=== PATIENT | female | born 1955 | race Hispanic/Latino ===

== ENCOUNTER 2023-05-21 04:59 | Observation (INO) | payer OTHER ==
[2023-05-16 10:29] LABS: INR 0.95 (0.85-1.15); PROTHROMBIN TIME 11.1 SEC (9.6-11.6)
[2023-05-16 10:30] LABS: PARTIAL THROMBOPLASTIN TIME 28.8 SEC (26.3-35.5)
[2023-05-16 10:33] VITALS: BP 108/60; PULSE 64; RESP 18
[2023-05-21] VITALS (27 sets, daily range): BP systolic 91–123; BP diastolic 55–75; PULSE 52–92; RESP 13–19; O2SAT 98
[~2023-05-21] VITALS: Ht 160 cm; Wt 75.7 kg
[~2023-05-21 04:59] MED LIST: ACET-2521 PO; ALEN70TA80 PO; ATOR20TA65 PO; BACL10TA PO; GABA300C PO; LISI1TAB51 PO; METO-408 PO; RIVA15TA PO; SUCR1ORA15 PO
[2023-05-21] MEDS: LACTATED RINGERS 1000ML 1,000 ML IV ONE (06:18)
[2023-05-21] MEDS: CEFAZOLIN SODIUM 2 GM VIAL ONE (06:18)
[2023-05-21] MEDS ORDERED: 0.9%NACL 48.45 ML, ROPIVACAINE 0.5% 49.25ML, EPINEPH 0.5MG KETOROLAC 30MG,CLONIDINE 80MCG IV PRN (07:00)
[2023-05-21] MEDS ORDERED: CEFAZOLIN SODIUM 1 GM VIAL ONE (09:02)
[2023-05-21] MEDS ORDERED: GENTAMICIN SULFATE 80 MG/2 ML VIAL ONE (09:02)
[2023-05-21] MEDS ORDERED: SUCCINYLCHOLINE CHLORIDE 20 MG/ML 10 ML VIAL ONE (10:02)
[2023-05-21] MEDS ORDERED: MIDAZOLAM HCL 1 MG/ML 2ML VIAL ONE (10:02)
[2023-05-21] MEDS ORDERED: ROCURONIUM BROMIDE 10MG/1ML 5ML VL ONE (10:02)
[2023-05-21] MEDS ORDERED: PROPOFOL 10 MG/ML 20ML VIAL IV ONE (10:02)
[2023-05-21] MEDS ORDERED: FENTANYL CITRATE PF 50 MCG/1 ML 2ML VIAL ONE (10:02)
[2023-05-21] MEDS: CEFAZOLIN SODIUM 2 GM VIAL IVPB ONE ×3 (10:15→11:28)
[2023-05-21] MEDS ORDERED: EPHEDRINE SULFATE 50 MG/ML AMPULE ONE (10:25)
[2023-05-21] MEDS: GENTAMICIN SULFATE 80 MG/2 ML VIAL IV ONE ×2 (11:03→11:28)
[2023-05-21] MEDS: ROPIVACAINE 0.5% 5MG/ML 30ML IJ ONE (11:04)
[2023-05-21] MEDS: KETOROLAC 30MG VIAL (30MG/ML) IJ ONE (11:07)
[2023-05-21] MEDS: CLONIDINE HCL 1000 MCG/10 ML IJ ONE (11:07)
[2023-05-21] MEDS: EPINEPHRINE 1 MG/ML 30ML VIAL IJ ONE (11:07)
[2023-05-21] MEDS ORDERED: NEOSTIGMINE METHYLSULFATE 1MG/ML IV ONE (12:09)
[2023-05-21] MEDS ORDERED: GLYCOPYRROLATE 0.2 MG/ML 5 ML VIAL ONE (12:09)
[2023-05-21] MEDS ORDERED: DIPHENOXYLATE HCL/ATROPINE 2.5/0.025 MG TAB PO PRN (14:30)
[2023-05-21] MEDS ORDERED: ACETAMINOPHEN 325 MG TAB PO PRN ×3 (14:30)
[2023-05-21] MEDS ORDERED: DIPHENHYDRAMINE HCL 25 MG CAPSULE PO PRN ×2 (14:30)
[2023-05-21] MEDS ORDERED: DiphenhydrAMINE HCL 50 MG/ML VIAL IM PRN (14:30)
[2023-05-21] MEDS ORDERED: TRAMADOL HCL 50 MG TABLET PO PRN (14:30)
[2023-05-21] MEDS ORDERED: MAG/ALUM/SIMETH 30 ML UDCUP PO PRN (14:30)
[2023-05-21] MEDS ORDERED: LACTULOSE 20 GM/30 ML UDCUP PO PRN (14:30)
[2023-05-21] MEDS: CEFAZOLIN SODIUM 2 GM VIAL IVPB SCH (15:21)
[2023-05-21] MEDS: HYDROMORPH /0.9% NACL/PF PCA 50 ML IV PRN (15:49)
[2023-05-21] MEDS: SUCRALFATE 1 GM TABLET PO SCH (17:31)
[2023-05-21] MEDS: ONDANSETRON 4MG INJ IVP PRN (19:46)
[2023-05-21] MEDS: LISINOPRIL 20 MG TABLET PO SCH (21:00)
[2023-05-21] MEDS: HYDROCHLOROTHIAZIDE 25 MG TABLET PO SCH (21:00)
[2023-05-21] MEDS ORDERED: NON-FORMULARY MEDICATION 1 EACH (Lisinopril/Hydrochlorothiazide (Lisinopril-Hctz 20-12.5 m PO SCH (21:00)
[2023-05-21] MEDS: ATORVASTATIN 20 MG TABLET PO SCH (21:25)
[2023-05-21] MEDS: GABAPENTIN 300 MG CAPSULE PO SCH (21:25)
[2023-05-21] MEDS: RIVAROXABAN 15 MG TABLET PO SCH (21:25)
[2023-05-22] MEDS: 0.9%NACL 1000ML 1,000 ML IV SCH (00:30)
[2023-05-22] MEDS: BENZOCAINE/MENTH/CETYLPYRD CL 1 EACH LOZENGE MM PRN (03:48)
[2023-05-22 04:00] VITALS: BP 92/59; PULSE 79; RESP 18
[2023-05-22 04:56] LABS: HEMATOCRIT 32.9 % (36-48); MEAN CORPUSCULAR HEMOGLOBIN 28.8 pg (27.0-33.0); MEAN CORPUSCULAR HGB CONC 31.9 g/dL (32.0-36.0); MEAN CORPUSCULAR VOLUME 90.4 fL (79-99); RED BLOOD CELL COUNT(AUTO) 3.64 MIL/uL (4.00-5.50); RED CELL DISTRIBUTION WIDTH 13.4 % (11.0-15.5); WHITE BLOOD COUNT (AUTO) 8.4 K/uL (4.8-10.8)
[2023-05-22 05:06] LABS: CREATININE 0.6 mg/dL (0.5-1.5); POTASSIUM 3.5 mmol/L (3.5-5.1)
[2023-05-22 08:00] VITALS: BP 102/67; PULSE 85; RESP 18
[2023-05-22] MEDS ORDERED: RIVAROXABAN 10 MG TABLET PO SCH (09:00)
[2023-05-22] MEDS: METOPROLOL SUCCINATE 25 MG TAB.SR.24H PO SCH (09:22)
[2023-05-22 12:00] VITALS: BP 91/58; PULSE 68; RESP 18
[2023-05-22 14:22] VITALS: O2SAT 97
[2023-05-22 16:00] VITALS: BP 98/76; PULSE 86; RESP 17
[2023-05-28] MEDS ORDERED: Alendronate Sodium 70 MG PO SCH (09:00)
== END 2023-05-22 18:25 | disposition home or self-care (01) ==
LOC: DAH 04:59 → OBSVTOIN 05:00 → DAH 05:00 → DAHIP 05:00 → INTOOBSV 05:00 → 4CH 13:35 → EDHIP 05-22 18:22
PROVIDERS: ADMIT Orthopaedic Surgery; ATTEND Orthopaedic Surgery
DX: M17.11 Unilateral primary osteoarthritis, right knee (principal); I10 Essential (primary) hypertension; M81.0 Age-related osteoporosis without current pathological fracture; E78.5 Hyperlipidemia, unspecified; I48.91 Unspecified atrial fibrillation; G89.29 Other chronic pain; E66.9 Obesity, unspecified; K21.9 Gastro-esophageal reflux disease without esophagitis; Z96.651 Presence of right artificial knee joint; Z98.890 Other specified postprocedural states; Z79.899 Other long term (current) drug therapy; Z68.29 Body mass index [BMI] 29.0-29.9, adult; Z90.49 Acquired absence of other specified parts of digestive tract
CPT/HCPCS: 85610; 85730; 36415 ×2; 87641; 27447; 96376; 96365; 96366 ×2; 96375; 96368; 97161; 97012; 97116 ×3; 97530 ×5; 80048; 85027; A6260; A4510; A4663; J7120 ×2; A4215 ×2; A4649 ×4; J3010; J0690 ×6; J0330; J0171; J3490 ×3; J1580 ×2; J2250; J2704; J2405; J1885; J2710; J2795; J0735; A6223; A4930; C1763 ×2; C1776; A5120; A4223; A4222; A4221; A6450; J7030; G0378 ×6